=== PATIENT | male | born 1955 | race Hispanic/Latino ===

== ENCOUNTER 2016-10-11 07:56 | Day surgery (SDC) | payer MEDICARE, BC ==
[2016-10-03 12:34] VITALS: BMI 27.1
[2016-10-11] MEDS ORDERED: Propofol 10 mg/ml Inj (20 ML) ONE (09:21)
[2016-10-11] MEDS ORDERED: Sodium Chloride 0.9% 1,000 ML IV SCH (10:00)
[2016-10-11 16:14] VITALS: BP 121/68; PULSE 70; RESP 21; TEMP 97.5; O2SAT 97
== END 2016-10-11 11:45 | disposition home or self-care (01) ==
LOC: ENDO 07:56
PROVIDERS: ATTEND Specialist
DX: K62.1 Rectal polyp (principal); D12.3 Benign neoplasm of transverse colon; D12.2 Benign neoplasm of ascending colon; K57.30 Diverticulosis of large intestine without perforation or abscess without bleeding; K64.8 Other hemorrhoids; Z12.11 Encounter for screening for malignant neoplasm of colon; J44.9 Chronic obstructive pulmonary disease, unspecified; G47.33 Obstructive sleep apnea (adult) (pediatric); I10 Essential (primary) hypertension; K21.9 Gastro-esophageal reflux disease without esophagitis; Z90.49 Acquired absence of other specified parts of digestive tract
CPT/HCPCS: 45380; 45385; 88305; J2001; J2704; J7040 ×2

== ENCOUNTER 2018-03-06 09:28 | Day surgery (SDC) | payer MEDICARE, BC ==
[2016-10-03 12:34] VITALS: BMI 27.1
[2018-03-06] MEDS ORDERED: Midazolam 2 MG/2 ML VIAL ONE (09:55)
[2018-03-06] MEDS ORDERED: Propofol 10 mg/ml Inj (20 ML) ONE (09:55)
[2018-03-06] MEDS ORDERED: Sodium Chloride 0.9% 1,000 ML IV SCH (11:00)
[2018-03-06 12:47] VITALS: BP 120/71; PULSE 69; RESP 16; TEMP 97.7; O2SAT 99
== END 2018-03-06 12:08 | disposition home or self-care (01) ==
LOC: ENDO 09:28
PROVIDERS: ATTEND Specialist
DX: K21.0 Gastro-esophageal reflux disease with esophagitis (principal); K44.9 Diaphragmatic hernia without obstruction or gangrene; K31.84 Gastroparesis; T18.2XXA Foreign body in stomach, initial encounter
CPT/HCPCS: 43239; 88305; 88312; J2001; J2250; J2704; J7030